=== PATIENT | male | born 1945 | race Caucasian/White ===

== ENCOUNTER 2018-05-19 10:51 | Outpatient (CLI) | payer MEDICARE, OTHER ==
--- NOTE | 2018-05-20 15:35 | CT Report ---
Reason: TOBACCO ABUSE Procedure Date: 05/19/2018 Accession Number: [id number] / [id number] Procedure: CT - Chest/Lung Screen Low Dose W/O CPT Code: FULL RESULT: EXAM CT LUNG SCREEN EXAM DATE: 05/19/2018 11:10 AM. HISTORY: 72-year-old patient with smoking history. Currently smoking: Unknown. . COMPARISON: None. TECHNIQUE: CT examination of the entire thorax without contrast was performed using low-dose technique. Thin section coronal, axial, sagittal and MIP axial images were obtained. In accordance with CT protocol optimization, one or more of the following dose reduction techniques were utilized for this exam: automated exposure control, adjustment of mA and/or KV based on patient size, or use of iterative reconstructive technique. FINDINGS: Nodules: Right upper lobe: None. Right middle lobe: None. Right lower lobe: None. Left upper lobe: Linear band of scarring and/or atelectasis inferiorly in the lingula. No suspicious nodules. Left lower lobe: None. Emphysema: None. Pleura: Unremarkable. Aorta: Unremarkable. Mediastinum: Unremarkable. Coronary calcifications: Present Other pulmonary findings: None. Other extrapulmonary findings: Status post cholecystectomy. The included upper abdomen is otherwise unremarkable. IMPRESSION: Lung-RADS ASSESSMENT CATEGORY: 2 - benign appearance. Probability of malignancy: Less than 1% RECOMMENDATION: Annual surveillance. [facility]
== END 2018-05-19 10:52 | disposition home or self-care (01) ==
LOC: DI 10:51
PROVIDERS: ATTEND Physician Assistant
DX: Z12.2 Encounter for screening for malignant neoplasm of respiratory organs (principal); Z87.891 Personal history of nicotine dependence

== ENCOUNTER 2019-03-05 21:25 | Outpatient (CLI) | payer MEDICARE, OTHER | END 2019-03-05 21:26 | disposition EMS.NT | LOC: EMS 21:25 | PROVIDERS: ATTEND Surgery | DX: R55 Syncope and collapse (principal) ==

== ENCOUNTER 2019-09-09 13:47 | Outpatient (CLI) | payer MEDICARE, OTHER ==
[2019-09-09 17:48] LABS: BASOPHILS % (AUTO) 0.4 %; EOSINOPHILS # (AUTO) 0.4 10^3/uL (0.0-0.7); EOSINOPHILS % (AUTO) 4.7 %; HGB - HEMOGLOBIN 15.5 g/dL (14.0-18.0); LYMPHOCYTES % (AUTO) 36.1 %; MEAN CORPUSCULAR HEMOGLOBIN 32.8 pg (27.0-31.0); MEAN CORPUSCULAR HGB CONC 32.4 g/dL (32.0-36.0); MEAN CORPUSCULAR VOLUME 101.1 fL (80.0-94.0); MEAN PLATELET VOLUME 11.7 fL (7.4-11.4); MONOCYTES # (AUTO) 0.6 10^3/uL (0.0-1.0); MONOCYTES % (AUTO) 7.2 %; NEUTROPHILS # (AUTO) 4.3 10^3/uL (1.5-6.6); NEUTROPHILS % (AUTO) 51.4 %; PLT - PLATELET COUNT 141 10^3/uL (130-450); RED BLOOD COUNT 4.73 10^6/uL (4.70-6.10); WHITE BLOOD COUNT 8.3 x10^3/uL (4.8-10.8)
[2019-09-09 17:51] LABS: ALBUMIN 4.7 g/dL (3.2-5.5); ALBUMIN/GLOBULIN RATIO 1.5 (1.0-2.2); ALKALINE PHOSPHATASE 64 IU/L (42-121); ALT ALANINE AMINOTRANSFERASE 35 IU/L (10-60); AST ASPARTATE AMINOTRANSFERASE 34 IU/L (10-42); BILIRUBIN,TOTAL 1.5 mg/dL (0.2-1.0); BUN - BLOOD UREA NITROGEN 14 mg/dL (6-20); CARBON DIOXIDE - CO2 23 mmol/L (21-32); CHLORIDE 96 mmol/L (101-111); CHOL/HDL RATIO 4.1 (<5.0); CHOLESTEROL 228 mg/dL; CREATININE 0.7 mg/dL (0.6-1.2); GFR - MDRD 111 (>89); GLUCOSE 73 mg/dL (70-100); HDL CHOLESTEROL 55 mg/dL; LDL CHOLESTEROL,CALCULATED 141 mg/dL; LDL/HDL RATIO 2.6 (<3.6); SODIUM 132 mmol/L (135-145); TOTAL PROTEIN 7.8 g/dL (6.7-8.2); VLDL CHOLESTEROL 32 mg/dL
[2019-09-09 17:54] LABS: HB2 TOTAL 14.9 g/dL; HEMOGLOBIN A1C 0.58 g/dL; HEMOGLOBIN A1C % 5.7 % (4.6-6.2)
[2019-09-09 17:57] LABS: PSA FREE 0.54 ng/mL (0.16-2.81)
[2019-09-09 17:58] LABS: PSA TOTAL 3.67 ng/mL (0.000-2.000)
== END 2019-09-09 13:48 | disposition home or self-care (01) ==
LOC: LAB.S 13:47
PROVIDERS: ATTEND Physician Assistant
DX: R73.9 Hyperglycemia, unspecified (principal); E03.9 Hypothyroidism, unspecified; R97.20 Elevated prostate specific antigen [PSA]; E78.2 Mixed hyperlipidemia; D69.6 Thrombocytopenia, unspecified
CPT/HCPCS: 36415; 80053; 80061; 83036; 83721; 84153; 84154; 84443; 85025

== ENCOUNTER 2019-09-19 07:33 | Outpatient (CLI) | payer MEDICARE, OTHER ==
--- NOTE | 2019-09-20 07:44 | Ultrasound Report ---
Reason: SCREENING FOR CARDIOVASCULAR DISORDERS Procedure Date: 09/19/2019 Accession Number: [id number] / [id number] Procedure: US - Aorta Screening CPT Code: Final Report FULL RESULT: EXAM: AORTIC DOPPLER ULTRASOUND EXAM DATE: 09/19/2019 08:26 AM. CLINICAL HISTORY: 74-year-old male with history of smoking. Abdominal aortic aneurysm screening. COMPARISON: None. TECHNIQUE: Real-time sonographic imaging of retroperitoneal vascular structures, including color-flow, Doppler flow and spectral analysis was performed by the skip hoist operator. Multiple community health program representative static images were saved for review. FINDINGS: Aorta: The abdominal aorta was adequately visualized. There is mild luminal irregularity of the abdominal aorta, compatible with atheromatous plaque. No abdominal aortic aneurysm is demonstrated. Proximal (sagittal AP): 2.3 cm Mid (transverse): 1.8 x 1.9 cm Distal (transverse): 1.8 x 1.7 cm Iliac Vessels: The right common iliac artery measures large in the transverse plane. However, this could be an overestimate from vascular tortuosity. Right common iliac artery (transverse): 1.8 x 1.0 cm Left common iliac artery (transverse): 1.4 x 1.1 cm Other: None. IMPRESSION: 1. No evidence of abdominal aortic aneurysm. 2. 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 However, transverse dimension can be overestimated by ultrasound from vascular tortuosity. Attention is recommended on follow-up examinations. Could consider CTA or MRA at the time of follow-up, which could allow for more accurate measurement of the iliac arteries orthogonal to their plane. [facility]
== END 2019-09-19 07:34 | disposition home or self-care (01) ==
LOC: DI 07:33
PROVIDERS: ATTEND Physician Assistant
DX: Z13.6 Encounter for screening for cardiovascular disorders (principal)
CPT/HCPCS: 76706

== ENCOUNTER 2022-07-16 08:00 | Outpatient (CLI) | payer MEDICARE, OTHER ==
[2022-07-16 16:24] LABS: BASOPHILS # (AUTO) 0.1 10^3/uL (0.0-0.1); BASOPHILS % (AUTO) 0.5 %; EOSINOPHILS # (AUTO) 0.3 10^3/uL (0.0-0.7); EOSINOPHILS % (AUTO) 3.7 %; HCT - HEMATOCRIT 44.2 % (42.0-52.0); HGB - HEMOGLOBIN 14.4 g/dL (14.0-18.0); LYMPHOCYTES # (AUTO) 3.5 10^3/uL (1.5-3.5); LYMPHOCYTES % (AUTO) 38.8 %; MEAN CORPUSCULAR HGB CONC 32.6 g/dL (32.0-36.0); MEAN CORPUSCULAR VOLUME 95.3 fL (80.0-94.0); MEAN PLATELET VOLUME 11.9 fL (7.4-11.4); MONOCYTES # (AUTO) 0.5 10^3/uL (0.0-1.0); MONOCYTES % (AUTO) 5.5 %; NEUTROPHILS # (AUTO) 4.7 10^3/uL (1.5-6.6); NEUTROPHILS % (AUTO) 51.3 %; PLT - PLATELET COUNT 151 10^3/uL (130-450); RED BLOOD COUNT 4.64 10^6/uL (4.70-6.10); RED CELL DISTRIBUTION WIDTH 13.4 % (12.0-15.0); WHITE BLOOD COUNT 9.1 x10^3/uL (4.8-10.8)
[2022-07-16 16:38] LABS: ALBUMIN 4.6 g/dL (3.2-5.5); ALBUMIN/GLOBULIN RATIO 1.7 (1.0-2.2); ALKALINE PHOSPHATASE 85 IU/L (42-121); ALT ALANINE AMINOTRANSFERASE 17 IU/L (10-60); AST ASPARTATE AMINOTRANSFERASE 18 IU/L (10-42); BUN - BLOOD UREA NITROGEN 15 mg/dL (6-20); CALCIUM 9.7 mg/dL (8.5-10.3); CARBON DIOXIDE - CO2 28 mmol/L (21-32); CHLORIDE 102 mmol/L (101-111); CHOL/HDL RATIO 2.5 (<5.0); CHOLESTEROL 119 mg/dL; CREATININE 0.9 mg/dL (0.6-1.2); GFR - MDRD 82 (>89); GLUCOSE 90 mg/dL (70-100); HDL CHOLESTEROL 47 mg/dL; LDL CHOLESTEROL,CALCULATED 53 mg/dL; LDL/HDL RATIO 1.1 (<3.6); POTASSIUM 4.4 mmol/L (3.5-5.0); SODIUM 137 mmol/L (135-145); TOTAL PROTEIN 7.3 g/dL (6.7-8.2); TRIGLYCERIDES 93 mg/dL; VLDL CHOLESTEROL 19 mg/dL
[2022-07-16 16:45] LABS: PSA TOTAL 4.37 ng/mL (0.000-2.000)
[2022-07-16 17:17] LABS: PSA FREE 1.059 ng/mL (0.16-2.81)
== END 2022-07-16 23:59 | disposition home or self-care (01) ==
LOC: LAB.R 08:00
PROVIDERS: ATTEND Internal Medicine
DX: Z00.00 Encounter for general adult medical examination without abnormal findings (principal); I65.29 Occlusion and stenosis of unspecified carotid artery; H91.90 Unspecified hearing loss, unspecified ear; R42 Dizziness and giddiness; R35.1 Nocturia; I77.9 Disorder of arteries and arterioles, unspecified; L98.9 Disorder of the skin and subcutaneous tissue, unspecified; Z79.899 Other long term (current) drug therapy; Z86.010 Personal history of colon polyps
CPT/HCPCS: 80053; 80061; 83721; 84153; 84154; 84443; 85025

== ENCOUNTER 2022-07-29 12:30 | Outpatient (CLI) | payer MEDICARE, OTHER ==
[2022-07-29] MEDS ORDERED: GADOBUTROL 7.5 MMOL/7.5 ML VIAL ONE (12:43)
[2022-07-29] MEDS ORDERED: GADOBUTROL 7.5 MMOL/7.5 ML VIAL IVP ONE (15:12)
--- NOTE | 2022-07-29 16:09 | MRI Report ---
PROCEDURE: ANGIO NECK W/WO INDICATIONS: LIGHTHEADEDNESS CONTRAST: gadavist 7.0ml TECHNIQUE: Axial and sagittal balanced GE through the neck. Coronal dynamic MRA after the administration of con trast in the arterial and venous phases, with rotating 3-dimensional maximum intensity projection (NC P) reformats constructed from subtraction images. COMPARISON: None. FINDINGS: Image quality: Degraded by motion artifact and technical factors. Carotid system: Great vessels demonstrate a conventional anatomy as they arise from the aortic arch. The origins of the common carotid arteries appear normal. The calibers and courses of the common c arotid arteries are likewise normal. The right internal carotid artery is patent. Left internal carot id artery is occluded at its origin. Posterior circulation: The origins of the vertebral arteries are unremarkable. The more superior po rtions of the vertebral arteries demonstrate normal course and caliber. Vertebral arteries join to f orm a normal appearing basilar artery. Miscellaneous: Subclavian arteries are patent throughout. Pre-contrast images through the neck demo nstrate no soft tissue abnormalities. IMPRESSION: 1. Patent right internal carotid artery. 2. Occluded left internal carotid artery. 3. Patent bilateral vertebral arteries. Reviewed by: Deirdre Rutledge MD on 07/29/2022 4:08 PM PST Approved by: Deirdre Rutledge MD on 07/29/2022 4:08 PM PST Station ID: [id number]
--- NOTE | 2022-07-29 16:11 | MRI Report ---
PROCEDURE: ANGIO HEAD WO INDICATIONS: LIGHTHEADEDNESS TECHNIQUE: Noncontrast axial 3-D [id number] MR angiogram, with 3-dimensional maximum intensity projection (M IP) reformats of the internal carotid arteries and posterior circulation then performed. COMPARISON: None. FINDINGS: Image quality: Partially degraded by technical factors. Anterior circulation: Right internal carotid arteries patent. Left internal carotid artery is occlude d and demonstrates reconstitution within the supraclinoid segment. The flow within the paired anterio r cerebral arteries is normal and symmetric. The flow within the middle cerebral arteries is normal and symmetric. The anterior communicating artery is seen. No stenoses, occlusions, or aneurysms. Posterior circulation: Visualized portions of the vertebral arteries demonstrate normal caliber, and join to form a normal appearing basilar artery. The flow within the posterior cerebral arteries is normal and symmetric. No stenoses, occlusions, or aneurysms. IMPRESSION: 1. Occluded left internal carotid artery. 2. Otherwise negative cerebral MR angiography. Reviewed by: Deirdre Rutledge MD on 07/29/2022 4:09 PM PST Approved by: Deirdre Rutledge MD on 07/29/2022 4:09 PM PST Station ID: [id number]
--- NOTE | 2022-07-29 16:17 | MRI Report ---
PROCEDURE: BRAIN W/WO INDICATIONS: LIGHTHEADEDNESS CONTRAST: gadavist 7.0ml TECHNIQUE: Noncontrast axial T1 spin echo, axial T2 fast spin echo, sagittal and axial FLAIR, coronal T2 fast sp in echo, axial gradient echo, axial diffusion and ADC through the brain. After the administration of contrast, axial and coronal T1 spin echo with fat saturation through the brain. COMPARISON: None. FINDINGS: Image quality: Partially degraded by motion artifact. CSF spaces: Basal cisterns are patent. No extra-axial fluid collections. Ventricles are normal in size and shape. Brain: No midline shift. No intracranial bleeds or masses. No abnormal intracranial enhancement. There is cerebral volume loss for age. There is periventricular white matter chronic small vessel is chemic change. The brainstem appears normal. Diffusion-weighted images demonstrate no acute ischemi c insults. Small chronic infarct versus resection cavity within the left posterior occipital lobe. Th ere is loss of the left internal carotid artery flow void. Otherwise normal intravascular flow voids are present. Skull and face: Calvarial marrow is otherwise normal in signal. Orbits appear normal. Sinuses: Sinuses and mastoids appear clear. IMPRESSION: 1. Occluded left internal carotid artery. 2. Chronic left occipital lobe infarct. 3. Volume loss and small vessel ischemic disease. 4. Encephalomalacia within the left occipital lobe, suggestive of postsurgical sequelae and/or prior infarction. No evidence of recent infarct. Reviewed by: Deirdre Rutledge MD on 07/29/2022 4:15 PM PST Approved by: Deirdre Rutledge MD on 07/29/2022 4:15 PM PST Station ID: [id number]
== END 2022-07-29 12:31 | disposition home or self-care (01) ==
LOC: DI 12:30
PROVIDERS: ATTEND Internal Medicine
DX: I65.22 Occlusion and stenosis of left carotid artery (principal); G93.89 Other specified disorders of brain
CPT/HCPCS: 70544; 70549; 70553; A9585

== ENCOUNTER 2023-07-29 10:53 | Outpatient (CLI) | payer MEDICARE, OTHER ==
--- NOTE | 2023-07-29 18:18 | XRAY Report ---
PROCEDURE: Knee 3V RT INDICATIONS: RIGHT KNEE PAIN TECHNIQUE: 4 views of the knee(s) were acquired. COMPARISON: None. FINDINGS: Bones: Tricompartmental degenerative changes. Chondrocalcinosis in the medial and lateral joint spac e. Moderate medial joint space narrowing. Soft tissues: No knee joint effusion. No suspicious soft tissue calcifications or masses. Vasculatu re has atherosclerotic calcifications. IMPRESSION: 1. Tricompartmental degenerative changes consistent with osteoarthritis with medial joint space narro wing. 2. Chondrocalcinosis. 3. Vascular calcifications. Reviewed by: Robb Haque MD on 07/29/2023 6:17 PM PST Approved by: Robb Haque MD on 07/29/2023 6:17 PM PST Station ID: [id number]
== END 2023-07-29 10:54 | disposition home or self-care (01) ==
LOC: DI 10:53
PROVIDERS: ATTEND Internal Medicine
DX: M17.11 Unilateral primary osteoarthritis, right knee (principal); M11.261 Other chondrocalcinosis, right knee; I70.201 Unspecified atherosclerosis of native arteries of extremities, right leg

== ENCOUNTER 2023-10-13 10:30 | Outpatient (CLI) | payer MEDICARE, OTHER ==
--- NOTE | 2023-10-13 16:34 | XRAY Report ---
PROCEDURE: Knee 2 View RT INDICATIONS: RIGHT KNEE PAIN, BILAT AP RIGHT PA TUNNEL TECHNIQUE: 2 views of the knee(s) were acquired. COMPARISON: Right knee radiographs 07/29/2023. FINDINGS: Bones: No fractures or dislocations. Mild to moderate joint space narrowing. No suspicious bony lesi ons. Soft tissues: Chondrocalcinosis. No suspicious soft tissue calcifications or masses. IMPRESSION: Mild to moderate joint space narrowing. Chondrocalcinosis. Reviewed by: Hector Emery MD on 10/13/2023 4:32 PM PDT Approved by: Hector Emery MD on 10/13/2023 4:32 PM PDT Station ID: [id number]
== END 2023-10-13 23:59 | disposition home or self-care (01) ==
LOC: DI.WOS 10:30
PROVIDERS: ATTEND Orthopaedic Surgery
DX: M25.861 Other specified joint disorders, right knee (principal); M11.261 Other chondrocalcinosis, right knee

== ENCOUNTER 2024-01-19 09:16 | Outpatient (CLI) | payer MEDICARE, OTHER ==
[2024-01-19 09:27] LABS: BASOPHILS % (AUTO) 0.4 %; EOSINOPHILS # (AUTO) 0.3 10^3/uL (0.0-0.7); EOSINOPHILS % (AUTO) 4.1 %; HCT - HEMATOCRIT 47.1 % (42.0-52.0); HGB - HEMOGLOBIN 14.9 g/dL (14.0-18.0); LYMPHOCYTES # (AUTO) 3.1 10^3/uL (1.5-3.5); MEAN CORPUSCULAR HEMOGLOBIN 30.7 pg (27.0-31.0); MEAN CORPUSCULAR HGB CONC 31.6 g/dL (32.0-36.0); MEAN CORPUSCULAR VOLUME 97.1 fL (80.0-94.0); MEAN PLATELET VOLUME 11.2 fL (7.4-11.4); MONOCYTES # (AUTO) 0.5 10^3/uL (0.0-1.0); MONOCYTES % (AUTO) 6.6 %; NEUTROPHILS # (AUTO) 4.1 10^3/uL (1.5-6.6); NEUTROPHILS % (AUTO) 50.7 %; PLT - PLATELET COUNT 144 10^3/uL (130-450); RED BLOOD COUNT 4.85 10^6/uL (4.70-6.10); RED CELL DISTRIBUTION WIDTH 13.4 % (12.0-15.0); WHITE BLOOD COUNT 8.1 x10^3/uL (4.8-10.8)
== END 2024-01-19 09:17 | disposition home or self-care (01) ==
LOC: LAB 09:16
PROVIDERS: ATTEND Internal Medicine
DX: M19.90 Unspecified osteoarthritis, unspecified site (principal); D69.6 Thrombocytopenia, unspecified
CPT/HCPCS: 36415; 85025

== ENCOUNTER 2024-03-18 11:24 | Outpatient (CLI) | payer MEDICARE, OTHER | END 2024-03-18 11:25 | disposition home or self-care (01) | LOC: LAB 11:24 | PROVIDERS: ATTEND Urology | DX: R97.20 Elevated prostate specific antigen [PSA] (principal) | CPT/HCPCS: 36415; 84153; 84154 ==